=== PATIENT | male | born 1960 | race African-American/Black ===

== ENCOUNTER 2016-10-08 20:23 | Inpatient (IN) | payer BC ==
--- NOTE | ~2016-10-08 | HP ---
History And Physical [address] [place]. [address] NAME: ZEE SCHROEDER : 62 STATUS : ADM IN [facility]#: [id number] AGE: 56 ADM/REG DATE : 10/08/16 MR#: [id number] REPORT SERV DATE: 10/09/16 DICTATED BY: HETAL OLIVAS DATE: 10/09/16 REPORT STATUS : Draft TRANSCRIBED BY: MODL DATE: 10/09/16 DATE OF ADMISSION: 10/08/2016 CHIEF COMPLAINT: A 56-year-old male presenting with shortness of breath and lower extremity edema. HISTORY OF PRESENTING ILLNESS: The patient's history was obtained through careful interview with the patient, coupled with review of [facility] and [facility] medical records. For about three or four days, the patient has been feeling ill. He has noticed wheezing, shortness of breath, characterized by dyspnea on exertion, but he also has been suffering from orthopnea having to sleep sitting up at night. He describes using nasal cannula oxygen at night chronically, but he started to use it during the daytime as well for several days. He has noticed increasing lower extremity edema over about a month's period of time. No abdominal swelling. No significant pain in his legs related to the edema. He describes chest discomfort over the last few days, a tightness quality, 6/10 severity, exacerbated by exertion. He has had had nausea, but no vomiting. He has had subjective fevers and chills and night sweats. No palpitations. No lightheadedness. He has had significant reflux symptoms. REVIEW OF SYSTEMS: Otherwise, a fourteen-point review of systems was obtained and was negative. PAST MEDICAL HISTORY: 1. Congestive heart failure. 2. Atrial fibrillation. 3. Chronic kidney disease, stage III. Baseline creatinine of 1.4 to 1.6. 4. Elevated cholesterol. 5. Hypertension. 6. Obesity hypoventilation syndrome with nasal cannula oxygen at night. 7. Panniculitis. 8. Childhood asthma. 9. Pneumonia. PAST SURGICAL HISTORY: Thoracic aortic aneurysm repair with aortic root replacement. ALLERGIES: NO KNOWN DRUG ALLERGIES. SOCIAL HISTORY: Never been a smoker. Quit alcohol. Is single. Has one child. Retired in History And Physical [address] [address] NAME: TIMOTHY SCHROEDERLynn VALLE : 62 STATUS : ADM IN PAT#: [id number] AGE: 56 ADM/REG DATE : 10/08/16 MR#: [id number] REPORT SERV DATE: 10/09/16 DICTATED BY: HETAL OLIVAS DATE: 10/09/16 REPORT STATUS : Draft TRANSCRIBED BY: DEYSI DATE: 10/09/162008 from the [facility]. FAMILY HISTORY: Father with end-stage renal disease. Strong family history of diabetes. CURRENT MEDICATIONS: Include Norvasc 10 mg p.o. daily, aspirin 81 mg p.o. daily, Coreg 25 mg p.o. b.i.d., lisinopril 10 mg p.o. daily, potassium 20 mEq p.o. b.i.d., Pravachol 40 mg p.o. daily, Zantac 300 mg p.o. b.i.d., Demadex 40 mg p.o. b.i.d., and Coumadin 10 mg p.o. daily but has been out of his Coumadin for about two weeks now. PHYSICAL EXAMINATION: VITAL SIGNS: Temperature 97.6, pulse 81, blood pressure 134/68, respiratory rate 18, and O2 saturation 86% on room air. GENERAL: Chronically ill-appearing male, in evidence of some distress secondary to shortness of breath. HEENT: Pupils equal, round, and reactive to light. No conjunctival pallor. No scleral icterus. Nares are patent. Oropharynx is clear of obstruction. Moist mucous membranes. NECK: Trachea midline. No thyromegaly. LYMPH: No cervical lymphadenopathy. No supraclavicular lymphadenopathy. RESPIRATORY: The patient has wet rales on examination that predominate. I do not appreciate any wheezes, no rhonchi. The patient has a labored respiratory effort. CARDIOVASCULAR: Regular rate and rhythm. The patient has an S3 gallop. No murmurs, no rubs. The patient has deeply pitting lower extremity edema extending to his knee symmetrically. ABDOMEN: Soft, seems distended by exam but no tympanic resonance on percussion. Nontender throughout. No hepatosplenomegaly. DERMATOLOGICAL: Warm and dry extremities. No pallor. No cyanosis. PSYCHIATRIC: Normal affect. Good mood. Alert and oriented x3. LABORATORY DATA: White blood cell count of 10.4, hemoglobin 11, hematocrit 36, and platelets 110. Sodium 142, potassium 3.9, chloride 102, bicarb 37, BUN 21, creatinine 1.82, glucose 102, brain natriuretic peptide 218, troponin negative. INR 1.1. ABG demonstrates pH of 7.43, a PaCO2 of 47, a PaO2 of 50, and a bicarb of 30. STUDIES: 1. Chest x-ray by my own evaluation shows congestion, cardiomegaly. 2. EKG by my own evaluation shows sinus rhythm. 3. A venous Doppler ultrasound of bilateral lower extremities shows no DVT. ASSESSMENT AND PLAN: 1. Hypoxic respiratory failure. Provide supportive care. 2. Congestive heart failure exacerbation. Check an echocardiogram to define function. Place on IV diuretic, SHADY inhibitor, Coreg. 3. Atrial fibrillation, "ran out" of Coumadin two weeks ago. We will resume Coumadin and bridge with heparin drip IV. Check telemetry. 4. Chronic kidney disease, stage III. 5. Obesity hypoventilation syndrome. History And Physical [address] [address] NAME: ZEE SCHROEDER : 62 STATUS : ADM IN [facility]#: [id number] AGE: 56 ADM/REG DATE : 10/08/16 MR#: [id number] REPORT SERV DATE: 10/09/16 DICTATED BY: HETAL OLIVAS DATE: 10/09/16 REPORT STATUS : Draft TRANSCRIBED BY: DEYSI DATE: 10/09/16 DENIS/DEYSI Hetal Olivas M.D. / [id number] CC: Nacho Markham N.P.
--- NOTE | ~2016-10-08 | DS ---
Discharge Summary [facility] [address] [place]. [address] NAME: ZEE SCHROEDER JR : 62 STATUS : DIS IN PAT#: [id number] AGE: 56 ADM/REG DATE : 10/08/16 MR#: [id number] REPORT SERV DATE: 10/13/16 DICTATED BY: CHANTE RAMIREZ DATE: 10/12/16 REPORT STATUS : Draft TRANSCRIBED BY: MODL DATE: 10/12/16 ADMISSION DATE: 10/08/2016 DISCHARGE DATE: 10/12/2016 DISCHARGE DIAGNOSES: 1. Acute on chronic hypoxic respiratory failure, the patient is stabilized. 2. Acute on chronic diastolic dysfunction, echocardiogram showed normal ejection fraction and also normally functioning aortic valve prothesis, but it showed mild diastolic dysfunction. 3. Obesity hypoventilation syndrome and obstructive sleep apnea, the patient had a CPAP machine at home, the compliance was emphasized through this hospitalization. 4. History of atrial fibrillation, currently remained in sinus rhythm, and the patient was out of Coumadin when he came into the hospital resuming his Coumadin dose at home dose which is 10 mg once at night. 5. BMI of 40.5. HISTORY OF PRESENT ILLNESS: This is a 56-year-old obese male patient, who came to the hospital with shortness of breath. Please see dictated H and P. HOSPITAL COURSE: He was admitted to the hospital with heart failure, was treated with IV diuretics, and had a good outcome with it. His home diuretic regimen was changed from torsemide to bumetanide 2 mg twice a day. He is having a good urine output and kidney function is tolerated pretty good. His Coumadin was resumed, but he has remained in sinus rhythm. Compliance of the CPAP was emphasized through this hospitalization, and he voiced understanding. He does have home oxygen and he does not have a portable tank. We provided a portable tank on discharge. Overall, tolerated all the treatment. His leg swelling started to go a little bit further down with changing of the torsemide, so we are going to continue the torsemide as a discharge medication of his diuretic treatment. Overall, had improvement and stabilized maximized inpatient benefit, will be discharged to home in stable condition. DISCHARGE MEDICATIONS: 1. Continue Norvasc 10 mg once a day. 2. Aspirin 81 mg once a day. 3. Coreg 25 mg twice a day. 4. Ranitidine 300 mg twice a day. 5. Prinivil 10 mg once a day. 6. Potassium 20 mEq twice a day. 7. Coumadin 10 mg once a day. 8. Pravachol 40 mg once a day. 9. Torsemide was discontinued and Bumex was continued at 2 mg twice a day. TIME SPENT: More than 30 minutes. Discharge Summary [address] [place] [address] NAME: ZEE SCHROEDER : 62 STATUS : DIS IN PAT#: [id number] AGE: 56 ADM/REG DATE : 10/08/16 MR#: [id number] REPORT SERV DATE: 10/13/16 DICTATED BY: CHANTE RAMIREZ DATE: 10/12/16 REPORT STATUS : Draft TRANSCRIBED BY: DEYSI DATE: 10/12/16 MISSY/DEYSI Chante Ramirez M.D. / [id number] CC: Nacho Markham N.P.
[2016-10-08 18:27] LABS: BASOPHILS 0.3 %; BASOPHILS ABSOLUTE 0.03 10/3/uL (0.0-0.16); EOSINOPHILS 1.4 %; EOSINOPHILS ABSOLUTE 0.15 10/3/uL (0.0-0.53); HEMOGLOBIN 11.3 g/dL (13.6-17.8); IMMATURE GRANULOCYTES 0.6 %; IMMATURE GRANULOCYTES ABSOLUTE 0.06 10/3/uL (0.0-0.11); LYMPHOCYTES 6.2 %; LYMPHOCYTES ABSOLUTE 0.65 10/3/uL (0.67-4.30); MEAN CORPUSCULAR HEMOGLOB 27.7 pg (26.0-34.0); MEAN CORPUSCULAR VOLUME 89.2 fL (80-100); MEAN PLATELET VOLUME 10.8 fL (9.2-13.0); MONOCYTES 7.3 %; MONOCYTES ABSOLUTE 0.76 10/3/uL (0.21-1.20); NEUTROPHILS 84.2 %; NEUTROPHILS ABSOLUTE 8.76 10/3/uL (2.02-8.40); RBC DISTRIBUTION WIDTH 15.8 % (12.0-16.0); RED CELL COUNT 4.08 10/6/uL (4.7-6.1)
[2016-10-08 18:28] LABS: ER CBC TAT 0 Hrs 07 Mins; HEMATOCRIT 36.4 % (40.0-51.0); MANUAL DIFF NO %; PLATELET COUNT 110 10/3/uL (150-400); WHITE BLOOD CELLS 10.4 10/3/uL (4.5-10.5)
[2016-10-08 18:35] LABS: INTERNATIONAL NORMAL RATI 1.1 UNITS (-)
[2016-10-08 18:36] LABS: PARTIAL THROMBO TIME 43.4 SEC (22.5-37.2)
[2016-10-08 18:41] LABS: PROTIME (NOT ORD) 14.4 SEC (12.0-14.5)
[2016-10-08 18:46] LABS: BUN (BLOOD UREA NITROGEN) 21 MG/DL (6-23); CHEST PAIN PROFILE TAT 0 Hrs 25 Mins; CHLORIDE, SERUM 102 MMOL/L (96-112); CO2 (CARBON DIOXIDE) 37 MMOL/L (24-34); CREATININE 1.85 MG/DL (0.70-1.30); GFR AFRICAN AMERICAN 46 ML/MIN (>=60); GFR NON AFRICAN AMERICAN 40 ML/MIN (>=60); GLUCOSE, SERUM 102 MG/DL (60-99); POTASSIUM, SERUM 3.9 MMOL/L (3.5-5.3); SODIUM, SERUM 142 MMOL/L (135-148); TROPONIN I <0.02 NG/ML (<0.05)
[~2016-10-08 20:23] MED LIST: ASAB PO; CORDARONE PO; COREG25 PO; COUMADIN10 MG PO; DEMA20 PO; FLEX PO; KDUR20 PO; KLOR-CON M2020 MEQ PO; L40 PO; LISINOPRIL40 MG PO; MIRALAXPKT PO; NORV10 PO; PRAVACHOL40 MG; PRIN10 PO; RANITIDINE300 MG PO; STOOL SOFTEN100 MG PO; ZANTAC300 MG PO
[2016-10-08 21:08] LABS: ALLENS TEST Pos; BE (BASE EXCESS) 4.9 MEQ/L (0 +/- 2.5); CARBOXYHEMOGLOBIN 2.2 % (0-3); HEMOBLOGIN CONTENT 12.5 G/DL (14-18); INSTRUMENT SERIAL # 8087; METHEMOGLOBIN 0.1 % (0-3); O2 CONTENT 14.6 VOL% (18-24); OPERATOR ID 17589; PCO2 (CO2 TENSION) 47 MMHG (35-45); PO2 (O2 TENSION) 50 MMHG (79-93); SAMPLE Arterial; pH 7.43 (7.37-7.43)
[2016-10-09 04:20] LABS: HEMATOCRIT 34.6 % (40.0-51.0); HEMOGLOBIN 10.9 g/dL (13.6-17.8); MEAN CORPUS HGB CONC 31.5 g/dL (32.0-36.0); MEAN CORPUSCULAR HEMOGLOB 28.1 pg (26.0-34.0); MEAN CORPUSCULAR VOLUME 89.2 fL (80-100); MEAN PLATELET VOLUME 10.9 fL (9.2-13.0); PLATELET COUNT 102 10/3/uL (150-400); RED CELL COUNT 3.88 10/6/uL (4.7-6.1)
[2016-10-09 04:21] LABS: MANUAL DIFF YES %
[2016-10-09 04:27] LABS: INTERNATIONAL NORMAL RATI 1.2 UNITS (-); PARTIAL THROMBO TIME 44.4 SEC (22.5-37.2); PROTIME (NOT ORD) 14.6 SEC (12.0-14.5)
[2016-10-09 04:46] LABS: EOSINOPHILS 2 %; LYMPHOCYTES 11 %; MONOCYTES 2 %; PLATELET ESTIMATE DEC (ADEQUATE); RBC MORPHOLOGY NORM (NORMAL); SEGMENTED NEUTROPHIL (0) 85 %; TOTAL NUCLEATED CELLS 100
[2016-10-10 05:02] LABS: BASOPHILS 0.2 %; BASOPHILS ABSOLUTE 0.02 10/3/uL (0.0-0.16); EOSINOPHILS 2.6 %; EOSINOPHILS ABSOLUTE 0.23 10/3/uL (0.0-0.53); HEMATOCRIT 36.8 % (40.0-51.0); HEMOGLOBIN 11.4 g/dL (13.6-17.8); IMMATURE GRANULOCYTES 0.3 %; IMMATURE GRANULOCYTES ABSOLUTE 0.03 10/3/uL (0.0-0.11); LYMPHOCYTES 7.9 %; LYMPHOCYTES ABSOLUTE 0.69 10/3/uL (0.67-4.30); MEAN CORPUSCULAR HEMOGLOB 27.9 pg (26.0-34.0); MEAN PLATELET VOLUME 11.2 fL (9.2-13.0); NEUTROPHILS ABSOLUTE 7.03 10/3/uL (2.02-8.40); PLATELET COUNT 126 10/3/uL (150-400); RBC DISTRIBUTION WIDTH 15.8 % (12.0-16.0); RED CELL COUNT 4.09 10/6/uL (4.7-6.1); WHITE BLOOD CELLS 8.7 10/3/uL (4.5-10.5)
[2016-10-10 05:04] LABS: MANUAL DIFF NO %
[2016-10-10 05:10] LABS: PROTIME (NOT ORD) 13.3 SEC (12.0-14.5)
[2016-10-10 05:31] LABS: A/G RATIO 0.6 (0.7-1.9); ALBUMIN 3.1 G/DL (3.5-5.0); ALKALINE PHOSPHATASE 79 U/L (45-117); BUN (BLOOD UREA NITROGEN) 21 MG/DL (6-23); CALCIUM, SERUM 8.3 MG/DL (8.5-10.4); CHLORIDE, SERUM 101 MMOL/L (96-112); CO2 (CARBON DIOXIDE) 34 MMOL/L (24-34); CREATININE 1.76 MG/DL (0.70-1.30); GFR AFRICAN AMERICAN 49 ML/MIN (>=60); GFR NON AFRICAN AMERICAN 43 ML/MIN (>=60); GLOBULIN 4.8 G/DL (2.5-4.1); GLUCOSE, SERUM 87 MG/DL (60-99); POTASSIUM, SERUM 4.2 MMOL/L (3.5-5.3); SGPT(ALT) 20 U/L (5-65); SODIUM, SERUM 142 MMOL/L (135-148); TOTAL PROTEIN 7.9 G/DL (6.0-8.5); TROPONIN I <0.02 NG/ML (<0.05)
[2016-10-10 05:52] LABS: SGOT(AST) 15 U/L (5-40); TOTAL BILIRUBIN 0.6 MG/DL (0-1.2)
[2016-10-11 05:13] LABS: INTERNATIONAL NORMAL RATI 1.1 UNITS (-)
[2016-10-11 05:30] LABS: BUN (BLOOD UREA NITROGEN) 22 MG/DL (6-23); CALCIUM, SERUM 8.8 MG/DL (8.5-10.4); CHLORIDE, SERUM 101 MMOL/L (96-112); CO2 (CARBON DIOXIDE) 33 MMOL/L (24-34); CREATININE 1.79 MG/DL (0.70-1.30); GFR AFRICAN AMERICAN 48 ML/MIN (>=60); GFR NON AFRICAN AMERICAN 42 ML/MIN (>=60); GLUCOSE, SERUM 100 MG/DL (60-99); SODIUM, SERUM 144 MMOL/L (135-148)
[2016-10-12 04:55] LABS: INTERNATIONAL NORMAL RATI 1.1 UNITS (-); PROTIME (NOT ORD) 14.3 SEC (12.0-14.5)
[2016-10-12 05:01] LABS: BUN (BLOOD UREA NITROGEN) 21 MG/DL (6-23); CALCIUM, SERUM 8.9 MG/DL (8.5-10.4); CHLORIDE, SERUM 102 MMOL/L (96-112); CO2 (CARBON DIOXIDE) 37 MMOL/L (24-34); CREATININE 1.82 MG/DL (0.70-1.30); GFR AFRICAN AMERICAN 47 ML/MIN (>=60); GFR NON AFRICAN AMERICAN 41 ML/MIN (>=60); GLUCOSE, SERUM 102 MG/DL (60-99); POTASSIUM, SERUM 4.2 MMOL/L (3.5-5.3); SODIUM, SERUM 138 MMOL/L (135-148)
[2016-10-12] MEDS ORDERED: BUM2 PO (09:32)
== END 2016-10-12 11:52 | disposition home or self-care (01) | DRG 291 ==
LOC: ER 20:23 → 5NO 21:59
PROVIDERS: Emergency Medicine; Internal Medicine; Nurse Practitioner
DX: I13.0 Hypertensive heart and chronic kidney disease with heart failure and stage 1 through stage 4 chronic kidney disease, or unspecified chronic kidney disease (principal); J96.21 Acute and chronic respiratory failure with hypoxia; N18.3 Chronic kidney disease, stage 3 (moderate); I50.33 Acute on chronic diastolic (congestive) heart failure; E66.2 Morbid (severe) obesity with alveolar hypoventilation; Z68.41 Body mass index [BMI] 40.0-44.9, adult; E78.5 Hyperlipidemia, unspecified; I48.91 Unspecified atrial fibrillation; Z79.82 Long term (current) use of aspirin; Z83.3 Family history of diabetes mellitus; Z91.14 Patient's other noncompliance with medication regimen
CPT/HCPCS: 36600; 71010; 71020; 80048; 80053; 82805; 83735; 83880; 84443; 84484; 85025; 85610; 85730; 93005; 93971; 99285; A9270-GY; C8929; G0378; Q9957